=== PATIENT | female | born 1975 | race Caucasian/White ===

== ENCOUNTER 2016-12-02 18:50 | Emergency (ER) | payer MEDICAID ==
[2016-12-02 20:26] LABS: BASOPHILS 0.4 % (0.0-2.0); EOSINOPHILS 2.4 % (0-7); HEMOGLOBIN 13.2 g/dL (12-16); IMMATURE GRANULOCYTES 0.2 % (0-5); LYMPHOCYTES 13.3 % (15-50); MCH 27.8 pg (26.0-34.0); MCHC 32.2 g/dL (31.0-37.0); MCV 86.3 fL (80.0-100.0); MEAN PLATELET VOLUME 9.1 fL (7.4-10.4); MONOCYTES 5.3 % (2-11); NEUTROPHILS 78.4 % (40-80); RBC 4.75 10x6/uL (4.00-5.40); RDW 13.9 % (11.5-14.5); WBC 16.9 10x3/uL (4.8-10.8)
[2016-12-02 20:32] LABS: PLATELET COUNT 331 10x3/uL (130-400)
[2016-12-02 20:49] LABS: ALBUMIN 3.6 g/dL (3.4-5.0); ALKALINE PHOSPHATASE 69 U/L (46-116); ALT (SGPT) 22 U/L (10-68); C-REACTIVE PROTEIN 0.5 mg/dL (0.0-0.9); CALC OSMOLALITY 276 mosm/kg (275-300); CALCIUM 9.1 mg/dL (8.5-10.1); CARBON DIOXIDE 27.4 mmol/L (21.0-32.0); CHLORIDE - SERUM 101 mmol/L (98-107); CREATININE - SERUM 0.8 mg/dL (0.6-1.3); GLUCOSE 99 mg/dL (74-106); POTASSIUM - SERUM 3.5 mmol/L (3.5-5.1); PROTEIN - SERUM 6.6 g/dL (6.4-8.2); SODIUM 139 mmol/L (136-145); UREA NITROGEN 11 mg/dL (7-18); eGFR NON AFRICAN AMERICAN 85 mL/min (90-120)
[2016-12-02 21:56] LABS: ERYTHROCYTE SEDIMENTATION RATE 3 mm/hr (0-20)
[2016-12-19 23:06] VITALS: BMI 18.9
== END 2016-12-02 21:45 | disposition home or self-care (01) ==
LOC: D.ER 18:50
PROVIDERS: Family Medicine
DX: B07.0 Plantar wart (principal); L03.116 Cellulitis of left lower limb; T87.89 Other complications of amputation stump

== ENCOUNTER 2016-12-19 18:10 | Inpatient (IN) | payer MEDICAID ==
[~2016-12-19] VITALS: Ht 167.6 cm; Wt 53.2 kg
[2016-12-19 18:46] LABS: BASOPHILS 0.4 % (0.0-2.0); EOSINOPHILS 5.9 % (0-7); HEMATOCRIT 41.7 % (36.0-48.0); HEMOGLOBIN 13.9 g/dL (12-16); IMMATURE GRANULOCYTES 0.2 % (0-5); LYMPHOCYTES 29.6 % (15-50); MCH 28.7 pg (26.0-34.0); MCHC 33.3 g/dL (31.0-37.0); MEAN PLATELET VOLUME 9.1 fL (7.4-10.4); MONOCYTES 7.9 % (2-11); PLATELET COUNT 273 10x3/uL (130-400); RBC 4.85 10x6/uL (4.00-5.40); RDW 13.9 % (11.5-14.5); WBC 8.9 10x3/uL (4.8-10.8)
[2016-12-19 19:01] LABS: ALBUMIN 3.7 g/dL (3.4-5.0); ALKALINE PHOSPHATASE 61 U/L (46-116); ALT (SGPT) 22 U/L (10-68); BILIRUBIN - TOTAL 0.13 mg/dL (0.2-1.3); CALC OSMOLALITY 276 mosm/kg (275-300); CALCIUM 9.1 mg/dL (8.5-10.1); CARBON DIOXIDE 32.4 mmol/L (21.0-32.0); CHLORIDE - SERUM 104 mmol/L (98-107); CREATININE - SERUM 0.8 mg/dL (0.6-1.3); GLUCOSE 71 mg/dL (74-106); POTASSIUM - SERUM 4.2 mmol/L (3.5-5.1); PROTEIN - SERUM 7.2 g/dL (6.4-8.2); SODIUM 140 mmol/L (136-145); UREA NITROGEN 13 mg/dL (7-18); eGFR NON AFRICAN AMERICAN 85 mL/min (90-120)
[2016-12-19] MEDS ORDERED: CELEXA10 MG PO (21:48)
[2016-12-19 21:51] LABS: ERYTHROCYTE SEDIMENTATION RATE 3 mm/hr (0-20)
[2016-12-19] MEDS ORDERED: NEURONTIN 300300 MG PO (22:12)
[2016-12-19] MEDS ORDERED: HYDROCODON-ACE1 EAC7 PO (22:13)
[2016-12-19] MEDS ORDERED: CLEOCIN HCL300 MG PO (22:14)
[2016-12-19] MEDS ORDERED: AMBIEN10 MG PO (22:15)
[2016-12-19 23:06] VITALS: BP 109/70; Ht 167.6 cm; Wt 53.2 kg
[2016-12-20] VITALS: BP 91/52
[2016-12-20 04:00] VITALS: BP 103/61
[2016-12-20 08:04] VITALS: BP 98/63
--- NOTE | 2016-12-20 09:00 | NUR ---
ASSESSMENT PER FLOW SHEET.PT WITHOUT DISTRESS.CALL LIGHT IN REACH
[2016-12-20 10:02] LABS: BASOPHILS 0.2 % (0.0-2.0); EOSINOPHILS 4.4 % (0-7); HEMATOCRIT 39.4 % (36.0-48.0); HEMOGLOBIN 12.9 g/dL (12-16); IMMATURE GRANULOCYTES 0.2 % (0-5); MCH 27.9 pg (26.0-34.0); MCHC 32.7 g/dL (31.0-37.0); MCV 85.1 fL (80.0-100.0); MEAN PLATELET VOLUME 9.1 fL (7.4-10.4); MONOCYTES 4.5 % (2-11); NEUTROPHILS 66.7 % (40-80); PLATELET COUNT 264 10x3/uL (130-400); RBC 4.63 10x6/uL (4.00-5.40); WBC 8.4 10x3/uL (4.8-10.8)
[2016-12-20 10:15] LABS: ALBUMIN 3.4 g/dL (3.4-5.0); ALKALINE PHOSPHATASE 54 U/L (46-116); ALT (SGPT) 19 U/L (10-68); BILIRUBIN - TOTAL 0.24 mg/dL (0.2-1.3); CALC OSMOLALITY 274 mosm/kg (275-300); CALCIUM 8.6 mg/dL (8.5-10.1); CARBON DIOXIDE 28.5 mmol/L (21.0-32.0); CHLORIDE - SERUM 103 mmol/L (98-107); CREATININE - SERUM 0.8 mg/dL (0.6-1.3); GLUCOSE 90 mg/dL (74-106); MAGNESIUM - SERUM 1.8 mg/dL (1.8-2.4); PHOSPHOROUS 3.2 mg/dL (2.5-4.9); PROTEIN - SERUM 6.6 g/dL (6.4-8.2); SODIUM 138 mmol/L (136-145); UREA NITROGEN 10 mg/dL (7-18); eGFR NON AFRICAN AMERICAN 85 mL/min (90-120)
[2016-12-20 12:28] VITALS: BP 116/78
--- NOTE | 2016-12-20 12:30 | NUR ---
REMAINS WITHOUT NEEDS.CALL LIGHT IN REACH
--- NOTE | 2016-12-20 15:30 | NUR ---
ICE CREAM AND SUKUMAR CRACKERS PER PT REQUEST.MONITOR FOR NEEDS
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
[2016-12-20 16:14] VITALS: BP 122/74
--- NOTE | 2016-12-20 17:25 | NUR ---
MRI COMPLETE.PT EATING DINNER.PT WITHOUT DISTRESS.CALL LIGHT IN REACH
--- NOTE | 2016-12-20 18:06 | NUR ---
REMAINS WITHOUT NEEDS.PAIN CONTROLLED.CONT PLAN OF CARE
--- NOTE | 2016-12-20 18:24 | NUR ---
PT C/O BURNING DURING URINATION AND WHITE DISCHARGE.PAGE TO
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
[2016-12-20 21:00] VITALS: BP 108/71
[2016-12-21 02:00] VITALS: BP 99/58
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
[2016-12-21 05:00] VITALS: BP 102/59
[2016-12-21 08:07] LABS: APPEARANCE HAZY (CLEAR); BACTERIA FEW /hpf (NONE SEEN); BILIRUBIN NEGATIVE (NEGATIVE); COLOR YELLOW (YELLOW); EPITHELIAL CELLS 0-5 /hpf (0-5); GLUCOSE NEGATIVE (NEGATIVE); KETONE NEGATIVE (NEGATIVE); LEUKOCYTE ESTERASE TRACE (NEGATIVE); MUCUS <1+ /lpf (NONE SEEN); NITRITE NEGATIVE (NEGATIVE); PROTEIN NEGATIVE (NEGATIVE); RED CELLS - URINE 0-5 /hpf (0-5); UROBILINOGEN NORMAL (NORMAL); WHITE CELLS - URINE 0-5 /hpf (0-5)
[2016-12-21 08:52] VITALS: BP 102/63
--- NOTE | 2016-12-21 09:00 | NUR ---
ASSESSMENT PER FLOW SHEET.PT WITHOUT DISTRESS.CALL LIGHT IN REACH
[2016-12-21 09:34] LABS: ALBUMIN 3.1 g/dL (3.4-5.0); ALKALINE PHOSPHATASE 50 U/L (46-116); ALT (SGPT) 16 U/L (10-68); BILIRUBIN - TOTAL 0.13 mg/dL (0.2-1.3); CALC OSMOLALITY 275 mosm/kg (275-300); CALCIUM 8.7 mg/dL (8.5-10.1); CARBON DIOXIDE 23.5 mmol/L (21.0-32.0); CHLORIDE - SERUM 105 mmol/L (98-107); CREATININE - SERUM 0.8 mg/dL (0.6-1.3); GLUCOSE 84 mg/dL (74-106); POTASSIUM - SERUM 4.1 mmol/L (3.5-5.1); PROTEIN - SERUM 6.1 g/dL (6.4-8.2); SODIUM 139 mmol/L (136-145); UREA NITROGEN 10 mg/dL (7-18); eGFR NON AFRICAN AMERICAN 85 mL/min (90-120)
--- NOTE | 2016-12-21 11:12 | NUR ---
Patient Name: LISA OLMOS Admission Status: ER Accout number: [id number] Admission Date: 12-19-2016 : 1975 Admission Diagnosis: Attending: SUZANNE Current LOS: 2 Anticipated DC Date: 12-22-2016 Planned Disposition: Home or Self Care Primary [place]: [place] [employer] [place] Discharge Planning Comments: CM MET WITH PATIENT REGARDING D/C NEEDS AND PLANS. PATIENT STATED SHE IS INDEPENDENT AT HOME AND HAS A WHEELCHAIR, CRUTCHES, AND WALKER. THERE IS A RAMP TO ENTER HER HOME AND NO STAIRS INSIDE. PATIENT LIVES WITH HER FRIEND (DEIRDRE BAEZ) AND HE WILL DRIVE HER HOME WHEN DISCHARGED. PATIENTS PCP IS DR. ROMANO AND PHARMACY IS [facility] [address] PATIENT REFUSED HOME HEALTH AND DENIED ANY NEEDS FOR D/C. CM WILL CONTINUE TO FOLLOW PATIENT WITH D/C NEEDS AND PLANS. PCP DR. ROSALINA PL[facility]IA [address] [phone] DEIRDRE BAEZ (FRIEND) [phone] [place]: Andree Cisneros Is the patient Alert and Oriented? Yes 0 * How many steps to enter\exit or inside your home? RAMP 0 * PCP DR. ROMANO 0 * Pharmacy [facility] [address] 0 * Preadmission Environment Home with Family 0 * ADLs Independent 0 * Equipment Crutch Walker Wheelchair 0 * List name and contact numbers for known caregivers / representatives who currently or will assist patient after discharge: DEIRDRE BAEZ (FRIEND) [phone] 0 * Additional services required to return to the preadmission environment? Yes 0 * Can the patient safely return to the preadmission environment? Yes 0 * Has this patient been hospitalized within the prior 30 days at any hospital? No 0 Grand Total: 0
[2016-12-21 11:28] LABS: BASOPHILS 0.5 % (0.0-2.0); EOSINOPHILS 3.9 % (0-7); HEMATOCRIT 40.3 % (36.0-48.0); IMMATURE GRANULOCYTES 0.1 % (0-5); LYMPHOCYTES 23.4 % (15-50); MCH 27.9 pg (26.0-34.0); MCHC 32.3 g/dL (31.0-37.0); MCV 86.5 fL (80.0-100.0); MEAN PLATELET VOLUME 9.4 fL (7.4-10.4); MONOCYTES 5.1 % (2-11); PLATELET COUNT 274 10x3/uL (130-400); RBC 4.66 10x6/uL (4.00-5.40); WBC 9.8 10x3/uL (4.8-10.8)
[2016-12-21] MEDS ORDERED: NICODERM C1 PATCH .1 TRANSDERM (12:08)
[2016-12-21] MEDS ORDERED: DIFLUCAN100 MG PO (12:08)
[2016-12-21] MEDS ORDERED: FLORAJEN3 CAPS460 MG PO (12:08)
[2016-12-21 12:32] VITALS: BP 109/71
--- NOTE | 2016-12-21 13:44 | NUR ---
CM REASSESSMENT NOTE: PATIENT IS DISCHARGING HOME AND PATIENT DENIED HOME HEALTH AND ANY OTHER NEEDS. PATIENTS FRIEND IS DRIVING HER HOME.
--- NOTE | 2016-12-21 14:00 | NUR ---
IV DCD CATH INTAT.DISCHARGE INSTRUCTIONS,STATES UNDERSTANDING.
[2016-12-21] MEDS ORDERED: HYDROCODON-ACE1 EAC7 PO (14:26)
--- NOTE | 2016-12-21 14:30 | NUR ---
LEFT FLOOR VIA WHEELCHAIR FOR TRANSPORT HOME.FAMILY AT SIDE
== END 2016-12-21 14:30 | disposition home or self-care (01) | DRG 566 ==
LOC: D.ER 18:10 → D.MS 21:12
PROVIDERS: Emergency Medicine; Family Medicine; Surgery; ADMIT Family Medicine
DX: T87.89 Other complications of amputation stump (principal); Z89.511 Acquired absence of right leg below knee; J45.909 Unspecified asthma, uncomplicated; G54.6 Phantom limb syndrome with pain; F17.200 Nicotine dependence, unspecified, uncomplicated

== ENCOUNTER 2018-02-09 02:02 | Emergency (ER) | payer MEDICAID ==
[2016-12-19 23:06] VITALS: BMI 18.9
[~2018-02-09 02:02] MED LIST: AMBIEN10 MG PO; CELEXA10 MG PO; CLEOCIN HCL300 MG PO; DIFLUCAN100 MG PO; FLORAJEN3 CAPS460 MG PO; HYDROCODON-ACE1 EAC7 PO; NEURONTIN 300300 MG PO; NICODERM C1 PATCH .1 TRANSDERM
== END 2018-02-09 03:34 | disposition home or self-care (01) ==
LOC: D.ER 02:02
DX: S60.031A Contusion of right middle finger without damage to nail, initial encounter (principal); W23.0XXA Caught, crushed, jammed, or pinched between moving objects, initial encounter; Y93.89 Activity, other specified; Y92.89 Other specified places as the place of occurrence of the external cause; F17.200 Nicotine dependence, unspecified, uncomplicated